=== PATIENT | male | born 1960 | race Caucasian/White ===

== ENCOUNTER 2020-05-08 21:46 | Emergency (ER) | payer BC ==
[~2020-05-08] VITALS: Ht 177.8 cm; Wt 90.7 kg
[~2020-05-08 21:46] MED LIST: ASPIRIN EC81 MG PO; ATORVASTATIN CA40 MG PO; CARTIA XT240 MG PO; CARVEDILOL6.25 MG PO; CLOPIDOGREL75 MG PO; COZAAR25 MG PO; ELIQUIS5 MG PO; OMEPRAZOLE20 MG PO
--- OUTSIDE RECORDS SUMMARY | 2020-05-08 21:50 | XMS ---
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 EKaylin VISIT COUNT (12 MO.) 1 [facility] Pepper Brownlee [address] [place] [address] TOTAL 3 NOTE: Visits indicate total known visits. ED/UCC VISIT TRACKING (12 MO.) 05/08/2020 21:47 [facility] [place] TYPE: Emergency COMPLAINT: - BACK PAIN 05/04/2020 07:44 [facility] Pepper FLORES TYPE: Emergency DIAGNOSES: - Back Pain - Pain in thoracic spine 05/02/2020 15:48 [facility] [place] TYPE: Emergency COMPLAINT: - TINGLING IN FEET DIAGNOSES: - Nicotine dependence, unspecified, uncomplicated - Pain in thoracic spine - Allergy status to other drugs, medicaments and biological substances - group home (current) use of aspirin - Other manager terminal (current) drug therapy - Old myocardial infarction INPATIENT VISIT TRACKING (12 MO.) No inpatient visits to display in this time frame [email or web address]
[2020-05-08] MEDS ORDERED: SALSALATE750 MG PO (23:30)
[2020-05-08] MEDS ORDERED: CHANTIX1 EACH PO (23:31)
[2020-05-08] MEDS ORDERED: GABAPENTIN300 MG PO (23:31)
== END 2020-05-09 00:52 | disposition home or self-care (01) ==
LOC: ED 21:46
DX: M54.6 Pain in thoracic spine (principal); I25.2 Old myocardial infarction; I48.91 Unspecified atrial fibrillation; F17.200 Nicotine dependence, unspecified, uncomplicated; Z88.8 Allergy status to other drugs, medicaments and biological substances; Z79.899 Other long term (current) drug therapy
CPT/HCPCS: 99283

== ENCOUNTER 2021-08-14 08:18 | Day surgery (SDC) | payer OTHER ==
[~2021-08-14] VITALS: Ht 177.8 cm; Wt 90.9 kg
[~2021-08-14 08:18] MED LIST changes: +CHANTIX1 EACH PO; +GABAPENTIN300 MG PO; +SALSALATE750 MG PO
--- NOTE | 2021-08-14 10:25 | NUR ---
08/14/21 1025 [place] Rai 1021 PATIENT ARRIVES TO PACU SLEEPING. AWAKENS WITH VERBAL STIMULI. BACK TO SLEEP WHEN NOT STIMULATED. RESP EVEN AND UNLABORED, NC AT 2 LITERS TURNED OFF ON ARRIVAL TO PACU.
--- NOTE | 2021-08-15 06:23 | OR ---
[facility] [address] [place], [place] [address] Signed DATE OF OPERATION: 08/14/2021 SURGEON: Susan Ambriz MD PREOPERATIVE DIAGNOSES: 1. Personal history of colonic polyps in 2016/age 55. 2. Right-sided diverticulosis. 3. Right posterior mid thigh infected cyst. POSTOPERATIVE DIAGNOSES: 1. Minimal sigmoid diverticulosis. 2. 4 mm and 2 mm polyps at 28 cm. 3. Enlarged prostate with left greater than right. 4. Infected cyst right posterior mid thigh. PROCEDURE: Colonoscopy with hot biopsy. ESTIMATED BLOOD LOSS: None. INDICATIONS: Jono is a 61-year-old gentleman, asked to see me for followup colonoscopy. He underwent colonoscopy at age 55 [address] Whalen. He had three adenomatous polyps taken out of the left colon. They were all less than 6 mm in diameter. He was said to have some diverticulosis in the ascending colon. Apparently, he did well with just Versed. He had been asked to follow up in 5 years. He has no lower GI complaints. There is no family history of colon cancer or polyps. In the office, I gave him a pamphlet on colonoscopy. We had reviewed that together. He understands the nature of that test. He told me I just helped his with a colonoscopy a few weeks ago. There is risk including, but not limited to gas bloating, crampy abdominal pain, bleeding, perforation requiring surgery, and missed diagnosis. We also reviewed the written instructions for the bowel prep line by line. He held his Eliquis five days prior to the procedure. He remains in sinus rhythm after his cardiac ablation. We also reviewed the need for IV conscious sedation. He had expressed understanding and wished to proceed. PROCEDURE IN DETAIL: Jono was taken into our endoscopy suite and placed in the left lateral decubitus position. He was given a total of 6 mg of Versed and 150 mcg of fentanyl to cover the Electronically Signed By: SUSAN AMBRIZ MD 08/15/21 0623 PATIENT NAME: JONO DANIELSON OPERATIVE REPORT DATE OF : 58 REPORT #: [id number] PHYSICIAN: SUSAN AMBRIZ MD PCP: CLINTON MOLINA MD REPORT IS CONFIDENTIAL AND NOT TO BE RELEASED WITHOUT AUTHORIZATION [facility] [address], [place] [address] Signed case. A digital rectal exam was performed. He has good sphincter tone. His prostate is enlarged and the left is certainly a little more prominent than the right. The adult colonoscope had been introduced and advanced all around into the cecum under direct visualization of camera without difficulty. He needed some extra sedation in order to advance the scope. We could easily see the appendiceal orifice and ileocecal valve. The scope was then slowly withdrawn. We took pictures throughout for photodocumentation. I did not specifically see any diverticula in the right colon on this occasion. The two polyps mentioned above were easily removed with the help of hot biopsy forceps. We saw some very tiny diverticula scattered about the sigmoid colon. The rectum was unremarkable. Upon retroflexion of scope we did not see any pathology above the anal canal. After this, the gas was suctioned out. The colonoscope removed. Jono tolerated the procedure quite well. RECOMMENDATIONS: Jono will be given a prescription for Bactrim DS for the infected cyst on his right thigh. I will see him back in my office in 7 to 14 days to review his results. I suspect he will stay on the 5-year rotation. Susan Ambriz MD ALB/MODL /[id number] cc: MD Clinton Diggs MD Copies: SUSAN AMBRIZ MD, TIMOTHY MD ~ Electronically Signed By: SUSAN AMBRIZ MD 08/15/21 0623 PATIENT NAME: JONO DANIELSON OPERATIVE REPORT DATE OF : 58 REPORT #: [id number] PHYSICIAN: SUSAN AMBRIZ MD PCP: CLINTON MOLINA MD REPORT IS CONFIDENTIAL AND NOT TO BE RELEASED WITHOUT AUTHORIZATION
== END 2021-08-14 11:15 | disposition home or self-care (01) ==
LOC: OPS 08:18 → DS 08:18 → OPS 09:45 → DS 09:45 → OPS 11:15
PROVIDERS: ATTEND Colon & Rectal Surgery
PROC: 0DBE8ZX Excision of Large Intestine, Via Natural or Artificial Opening Endoscopic, Diagnostic (ICD-10-PCS; principal; 2021-08-14 09:45)
DX: Z12.11 Encounter for screening for malignant neoplasm of colon (principal); K63.5 Polyp of colon; I25.2 Old myocardial infarction; E78.00 Pure hypercholesterolemia, unspecified; I48.91 Unspecified atrial fibrillation; E66.9 Obesity, unspecified; I49.5 Sick sinus syndrome; I25.10 Atherosclerotic heart disease of native coronary artery without angina pectoris; Z90.49 Acquired absence of other specified parts of digestive tract; Z88.8 Allergy status to other drugs, medicaments and biological substances; K57.30 Diverticulosis of large intestine without perforation or abscess without bleeding; L72.9 Follicular cyst of the skin and subcutaneous tissue, unspecified; N40.0 Benign prostatic hyperplasia without lower urinary tract symptoms; Z79.01 Long term (current) use of anticoagulants
CPT/HCPCS: 99153; G0500; J2250; J3010; J7121

== ENCOUNTER 2022-10-15 14:19 | Emergency (ER) | payer OTHER ==
[~2022-10-15] VITALS: Ht 177.8 cm; Wt 90.9 kg
[2022-10-15] MEDS ORDERED: CLARITIN10 M2 PO (14:31)
[2022-10-15] MEDS ORDERED: MELOXICAM15 MG PO (15:04)
[2022-10-15 15:15] VITALS: BP 129/98
== END 2022-10-15 15:15 | disposition home or self-care (01) ==
LOC: ED 14:19
DX: S90.112A Contusion of left great toe without damage to nail, initial encounter (principal); W22.8XXA Striking against or struck by other objects, initial encounter; I25.2 Old myocardial infarction; I48.91 Unspecified atrial fibrillation; M19.90 Unspecified osteoarthritis, unspecified site; F17.200 Nicotine dependence, unspecified, uncomplicated; Z88.8 Allergy status to other drugs, medicaments and biological substances; Z79.899 Other long term (current) drug therapy
CPT/HCPCS: 73660; 96372; 99283-25; J1885

== ENCOUNTER 2022-11-20 11:03 | Emergency (ER) | payer OTHER ==
[~2022-11-20] VITALS: Ht 177.8 cm; Wt 90.9 kg
[~2022-11-20 11:03] MED LIST changes: +CLARITIN10 M2 PO; +MELOXICAM15 MG PO
[2022-11-20 16:39] VITALS: BP 119/77
== END 2022-11-20 16:33 | disposition home or self-care (01) ==
LOC: ED 11:03
DX: S61.012A Laceration without foreign body of left thumb without damage to nail, initial encounter (principal); F17.200 Nicotine dependence, unspecified, uncomplicated; W31.89XA Contact with other specified machinery, initial encounter; Z23 Encounter for immunization; Z79.01 Long term (current) use of anticoagulants; Z88.8 Allergy status to other drugs, medicaments and biological substances
CPT/HCPCS: 90471; 90714; 99282-25

== ENCOUNTER 2023-08-20 09:30 | Emergency (ER) | payer OTHER ==
[~2023-08-20] VITALS: Ht 177.8 cm; Wt 88.5 kg
[~2023-08-20 09:30] MED LIST changes: +ONDANSETRON ODT4 MG PO
[2023-08-20 10:59] LABS: EOSINOPHILS 5.4 % (0-6); HEMATOCRIT 42.7 % (35.0-50.0); HEMOGLOBIN 14.1 g/dL (12.0-18.0); LYMPHOCYTES 27.7 % (24-44); MCH 30.5 (27-36); MCHC 32.9 g/dl (30-36); MCV 92.6 fl (81-99); MONOCYTES 10.7 % (0-12); NEUTROPHILS 55.2 % (39-80); PLATELET COUNT 275 K/uL (140-440); RBC 4.61 M/ul (4.3-5.7); RDW 13.7 (10.5-15.0)
[2023-08-20 11:18] LABS: ALBUMIN 3.6 g/dL (3.4-5.0); ALBUMIN/GLOBULIN RATIO 0.97 (1.1-2.4); ANION GAP 13.4 (7-21); BILIRUBIN, TOTAL 0.3 ng/dL (0.2-1.0); BUN/CREATININE RATIO 15.2 (6.0-28.6); CALCIUM 8.3 mg/dL (8.5-10.1); CREATININE, SERUM 1.25 mg/dL (0.70-1.30); POTASSIUM 4.4 mmol/L (3.5-5.1); PROTEIN, TOTAL 7.3 g/dL (6.4-8.2)
[2023-08-20] MEDS ORDERED: SODIUM CHLORIDE 0.9% 1,000 ML IV PRN (12:15)
[2023-08-20 14:39] VITALS: BP 135/78
--- NOTE | 2023-08-21 22:13 | EKG ---
[facility] [address] [facility] [place] [address] Signed Sinus bradycardia Otherwise normal ECG Confirmed by Sun Colby MD ([id number]) on 08/21/2023 10:13:17 PM Electronically Signed By: SUN COLBY MD 08/21/232212 PATIENT NAME: IONA DANIELSON Electrocardiogram DATE OF : 58 PHYSICIAN: SUN COLBY MD REPORT #: [id number] REPORT IS CONFIDENTIAL AND NOT TO BE RELEASED WITHOUT AUTHORIZATION
== END 2023-08-20 14:39 | disposition home or self-care (01) ==
LOC: ED 09:30
PROVIDERS: Emergency Medicine
DX: R19.7 Diarrhea, unspecified (principal); E86.0 Dehydration; I25.2 Old myocardial infarction; I48.91 Unspecified atrial fibrillation; F17.200 Nicotine dependence, unspecified, uncomplicated; Z88.8 Allergy status to other drugs, medicaments and biological substances; Z79.01 Long term (current) use of anticoagulants
CPT/HCPCS: 36415; 74177; 80053; 83690; 85025; 87045; 87046; 87177; 87493; 93005; 93010; 99284-25; J7030; Q9967

== ENCOUNTER 2023-12-06 22:23 | Emergency (ER) | payer OTHER ==
[~2023-12-06] VITALS: Ht 177.8 cm; Wt 93.5 kg
[2023-12-06] MEDS ORDERED: NITROGLYCERIN 0.4 MG SUBL SL PRN (22:30)
[2023-12-06] MEDS ORDERED: ASPIRIN 81 MG CHEW PO ONE (22:30)
[2023-12-06] MEDS ORDERED: OSTERA TABLET1 EACH PO (22:34)
[2023-12-06 22:38] LABS: BASOPHILS 1.4 % (0-2); EOSINOPHILS 5.9 % (0-6); HEMATOCRIT 41.4 % (35.0-50.0); HEMOGLOBIN 13.7 g/dL (12.0-18.0); LYMPHOCYTES 42.5 % (24-44); MCH 31.2 (27-36); MCHC 33.2 g/dl (30-36); MCV 93.9 fl (81-99); MONOCYTES 6.4 % (0-12); NEUTROPHILS 43.8 % (39-80); PLATELET COUNT 251 K/uL (140-440); RBC 4.41 M/ul (4.3-5.7); RDW 14.3 (10.5-15.0)
[2023-12-06] MEDS ORDERED: FAMOTIDINE 20 MG/ 2 ML VIAL IV ONE (22:45)
[2023-12-06 23:04] LABS: ALBUMIN/GLOBULIN RATIO 1.18 (1.1-2.4); ANION GAP 12.5 (7-21); BILIRUBIN, TOTAL 0.2 ng/dL (0.2-1.0); BUN/CREATININE RATIO 11.67 (6.0-28.6); CALCIUM 9.3 mg/dL (8.5-10.1); CREATININE, SERUM 1.37 mg/dL (0.70-1.30); MAGNESIUM 1.8 mg/dL (1.8-2.4); POTASSIUM 3.5 mmol/L (3.5-5.1); PROTEIN, TOTAL 7.4 g/dL (6.4-8.2)
[2023-12-06] MEDS ORDERED: LACTATED RINGER'S 1,000 ML IV ONE (23:15)
[2023-12-06] MEDS ORDERED: NITROGLYCERIN PACKET TOP ONE (23:15)
[2023-12-07 00:01] LABS: AMPHETAMINES, URINE NEGATIVE (NEGATIVE); BARBITURATES, URINE NEGATIVE (NEGATIVE); BENZODIAZEPINE, URINE NEGATIVE (NEGATIVE); BUPRENORPHINE, URINE NEGATIVE (NEGATIVE); CANNABINOID, URINE NEGATIVE (NEGATIVE); COCAINE, URINE NEGATIVE (NEGATIVE); ECSTASY, URINE NEGATIVE (NEGATIVE); FENTANYL, URINE NEGATIVE (NEGATIVE); METHADONE, URINE NEGATIVE (NEGATIVE); OPIATES, URINE NEGATIVE (NEGATIVE); OXYCODONE, URINE NEGATIVE (NEGATIVE); PHENCYCLIDINE, URINE NEGATIVE (NEGATIVE)
[2023-12-07] MEDS ORDERED: HEPARIN SOD,PORK IN 0.45% NACL 500 ML IV SCH (00:30)
[2023-12-07] MEDS ORDERED: HEParin SOD (PORCINE) 5,000 UNIT/ML VIAL IV ONE (00:30)
[2023-12-07 00:40] LABS: INR 0.94 (0.80-1.30); PROTIME 12.1 Sec (11.2-14.2)
[2023-12-07 00:42] LABS: PARTIAL THROMBOPLASTIN TIME 26.5 Sec (22.9-41.3)
[2023-12-07 04:30] VITALS: BP 121/72
--- NOTE | 2023-12-08 17:37 | EKG ---
[facility] [address] [facility] [place] [address] Signed Normal sinus rhythm Normal ECG When compared with ECG of 20-AUG-2023 09:53, No significant change was found Confirmed by Mike Otto MD ([id number]) on 12/08/2023 5:37:41 PM Electronically Signed By: MIKE OTTO DO 12/08/23 1737 PATIENT NAME: IONA DANIELSON NITO Electrocardiogram DATE OF : 58 PHYSICIAN: MIKE OTTO DO REPORT #: [id number] REPORT IS CONFIDENTIAL AND NOT TO BE RELEASED WITHOUT AUTHORIZATION
--- NOTE | 2023-12-08 17:38 | EKG ---
[facility] [address] [facility] [place], [place] [address] Signed Sinus bradycardia Otherwise normal ECG When compared with ECG of 06-DEC-2023 22:22, (Unconfirmed) No significant change was found Confirmed by Mike Otto MD ([id number]) on 12/08/2023 5:38:04 PM Electronically Signed By: MIKE OTTO DO 12/08/23 1738 PATIENT NAME: KIMBERLYNJOELIONA Electrocardiogram DATE OF : 58 PHYSICIAN: MIEK OTTO DO REPORT #: [id number] REPORT IS CONFIDENTIAL AND NOT TO BE RELEASED WITHOUT AUTHORIZATION
== END 2023-12-07 04:28 | disposition short-term general hospital (02) ==
LOC: ED 22:23
PROVIDERS: Internal Medicine
DX: I24.9 Acute ischemic heart disease, unspecified (principal); I25.10 Atherosclerotic heart disease of native coronary artery without angina pectoris; I48.91 Unspecified atrial fibrillation; F17.200 Nicotine dependence, unspecified, uncomplicated; Z95.5 Presence of coronary angioplasty implant and graft; Z79.01 Long term (current) use of anticoagulants; Z88.8 Allergy status to other drugs, medicaments and biological substances; Z79.899 Other long term (current) drug therapy
CPT/HCPCS: 36415; 71045; 80053; 80307; 83735; 83880; 84484; 85025; 85379; 85610; 85730; 93005; 93010; 96374; 96375; 99285-25; A9270; J1644; J7121